=== PATIENT | female | born 1955 | race Caucasian/White ===

== ENCOUNTER 2020-04-17 10:26 | Emergency (ER) | payer BC ==
[2020-04-17 10:31] VITALS: TEMP 97.6
[2020-04-17] MEDS ORDERED: FLUORESCEIN STRIPS 1 MG STRIP LEFT EYE ONE (10:32)
[2020-04-17] MEDS ORDERED: PROPARACAINE 0.5% OPHTH DROPS 15 ML BTL LEFT EYE STA (10:32)
[2020-04-17] MEDS ORDERED: TOBRAMYCIN 0.3% OPHTH DROPS 5 ML BTL RIGHT EYE STA (10:53)
--- NOTE | 2020-04-17 11:16 | ED ---
Eye Problem HPI - General Chief complaint: Eye Problems Stated complaint: Eye problems Time Seen by Provider: 04/17/20 10:31 Source: patient Mode of arrival: ambulatory Limitations: no limitations - History of Present Illness Initial comments: 64-year-old feel present today for chief complaint of right eye irritation. Patient states immediately after putting in her contact she felt as though she had poked her eye. Patient said she took her contacts have not put them in sense that she has had previous corneal ulcers. Patient states that she has had some light sensitivity as well as pain in the right eye with watering and irritation. Patient states that she has no headaches nausea vomiting or severe head pain she states is just irritation of the eye. 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 Patient has no additional complaints. Denies current topical antibiotics use. Patient has no additional complaints and appears well on arrival. - Related Data Previous Rx's Medication Instructions Recorded Tobramycin 0.3% Ophth Soln [Tobrex 1 drop RIGHT EYE Q4H 5 Days #3 ml 04/17/20 0.3% Ophth Soln] Allergies Allergy/AdvReac Type Severity Reaction Status Date / Time Penicillins Allergy Unknown Verified 04/17/20 10:30 Review of Systems ROS Statement: Those systems with pertinent positive or pertinent negative responses have been documented in the HPI. ROS Other: All systems not noted in ROS Statement are negative. Past Medical History Past Medical History: CVA/TIA Additional Past Medical History / Comment(s): migraine History of Any Multi-Drug Resistant Organisms: None Reported Past Surgical History: Breast Surgery, Cholecystectomy Past Psychological History: No Psychological Hx Reported Smoking Status: Current every day smoker Past Alcohol Use History: None Reported Past Drug Use History: None Reported General Exam - General Exam Comments Initial Comments: General: The patient is awake and alert, in no distress Eye: +3 mm pupils are equal, round and reactive to light, extra-ocular movements are intact. No nystagmus. There is very slight headache developed injection of the right eye in comparison the left. No signs of icterus. Upon fluorescein examination there is a pinpoint area of uptake at the 5 o'clock position but does not move. Eyelids were everted no foreign body. Negative Rita sign. No steamy cornea. No evidence of ulceration. Pain was relieved completely with proparacaine IOP OD 29. VA was obtained bynursing staff, left eye has contact in at time VA was obtained and right eye did not. Ears, nose, mouth and throat: There are moist mucous membranes and no oral lesions. Neck: The neck is supple, there is no tenderness or JVD. Cardiovascular: There is a regular rate and rhythm. No murmur, rub or gallop is appreciated. Respiratory: Lungs are clear to auscultation, respirations are non-labored, breath sounds are equal. No wheezes, stridor, rales, or rhonchi. Musculoskeletal: Normal ROM, no tenderness. Strength 5/5. Sensation intact. Pulses equal bilaterally 2+. Neurological: A&O x 3. CN II-XII intact, There are no obvious motor or sensory deficits. Coordination appears grossly intact. Speech is normal. Skin: Skin is warm and dry and no rashes or lesions are noted. Psychiatric: Cooperative, appropriate mood & affect, normal judgment. Limitations: no limitations Course Vital Signs 04/17/20 04/17/20 04/17/20 10:28 11:30 11:38 Temperature 97.6 F 97.6 F 97.6 F Pulse Rate 92 85 85 Respiratory 16 18 18 Rate Blood Pressure 187/97 148/94 148/94 O2 Sat by Pulse 99 99 99 Oximetry Medical Decision Making - Medical Decision Making Patient is mildly elevated pressures there is no other findings suggestive acute closure glaucoma. There is physical examination findings consistent with a corneal abrasion-uptake of fluorescein with relief after the administration of proparacaine I discussed the physical examination as well as the patient's ocular pressures by attending provider at this time we feel patient is to for discharge with treatment with tobramycin given contact lens history and ophthalmology follow-up on Saturday patient is agreeable to this care plan is aware of the importance of ophthalmology follow-up she is to return for worsening pain. Patient discharged appearing well. Disposition Clinical Impression: Corneal abrasion, Irritation of right eye Disposition: HOME SELF-CARE Condition: Good Instructions (If sedation given, give patient instructions): Corneal Abrasion (ED) Additional Instructions: Please use medication as discussed. Please follow-up with your business analyst on Saturday as discussed please continue to refrain from using right contact lens. Please return to emergency room if the symptoms increase or worsen or for any other concerns. Prescriptions: Tobramycin 0.3% Ophth Soln [Tobrex 0.3% Ophth Soln] 1 drop RIGHT EYE Q4H 5 Days #3 ml Is patient prescribed a controlled substance at d/c from ED?: No Referrals: Juan Daniel Varner MD [Primary Care Provider] - 1-2 days Time of Disposition: 11:16
[2020-04-17 11:37] VITALS: BP 148/94; PULSE 85; RESP 18
== END 2020-04-17 11:38 | disposition home or self-care (01) ==
LOC: EC 10:26
DX: S05.01XA Injury of conjunctiva and corneal abrasion without foreign body, right eye, initial encounter (principal); R03.0 Elevated blood-pressure reading, without diagnosis of hypertension; F17.200 Nicotine dependence, unspecified, uncomplicated; Z88.0 Allergy status to penicillin; X58.XXXA Exposure to other specified factors, initial encounter
CPT/HCPCS: 99283

== ENCOUNTER → 2020-06-13 | Outpatient (CLI) | payer BC | END | disposition home or self-care (01) | LOC: LABWHC1 11:16 | PROVIDERS: ATTEND Family Medicine | DX: Z20.828 Contact with and (suspected) exposure to other viral communicable diseases (principal); R51.9 Headache, unspecified; R05 Cough; J02.9 Acute pharyngitis, unspecified; R68.83 Chills (without fever) | CPT/HCPCS: U0003; C9803 ==

== ENCOUNTER → 2023-09-05 | Outpatient (CLI) | payer MEDICARE, BC ==
--- NOTE | 2023-09-05 11:04 | CTL ---
EXAMINATION TYPE: CT Low Dose Lung DATE OF EXAM ORDERED: 09/05/2023 HISTORY: . Lung cancer screening CT DLP: 125.[address] CTDI: 3.2 mGy Automated exposure control for dose reduction was used. COMPARISON: None available. TECHNIQUE: Low dose computed tomography scan was performed through the chest at 1 mm thick sections a nd reconstructed images in multiple planes at 1 mm and [address] DIAGNOSTIC QUALITY: Satisfactory FINDINGS: LUNG NODULES: None. LUNGS: COPD: Severity: Mild centrilobular emphysema. Fibrosis: Severity: None Lymph nodes: No adenopathy. Other findings: RIGHT PLEURAL SPACE: Effusion: None Calcification: None Thickening: None Pneumothorax: None LEFT PLEURAL SPACE: Effusion: None Calcification: None Thickening: None Pneumothorax: None HEART: Heart Size: Normal Coronary Calcification: There are mild coronary artery calcifications the left anterior descending. T here is mild vascular calcification within the thoracic aorta without evidence of aneurysmal dilation . 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 Indy omyolipoma in the interpolar region of the right kidney measures 1.3 cm in diameter. Additional angio myolipoma the upper pole of the left kidney measures 2.0 cm in diameter. The gallbladder surgically a bsent. The visualized upper abdomen otherwise appears unremarkable. Bony thorax: None Supraclavicular region: None Other: None IMPRESSION: 1. Negative lung cancer screening examination for significant pulmonary nodules. 2. Mild emphysema. 3. Mild coronary artery calcifications. 3. Partially visualized kidneys show bilateral angiomyolipomas. CT LUNG RAD AND CT CHEST RECOMMENDATION: Lung-Rad 1 Negative: Continue annual screening with LDCT in 12 months. S Modifier (other clinically significant findings):
== END | disposition home or self-care (01) ==
LOC: RADCTMAIN 09:35
PROVIDERS: ATTEND Family Medicine
DX: Z12.2 Encounter for screening for malignant neoplasm of respiratory organs (principal); J43.9 Emphysema, unspecified; I25.10 Atherosclerotic heart disease of native coronary artery without angina pectoris; D17.71 Benign lipomatous neoplasm of kidney; F17.210 Nicotine dependence, cigarettes, uncomplicated
CPT/HCPCS: 71271